=== PATIENT | female | born 1965 | race Hispanic/Latino ===

== ENCOUNTER → 2025-09-23 | Outpatient (CLI) | payer OTHER ==
--- NOTE | 2025-09-24 03:06 | HMCIMG ---
STUDY: X-RAY OF THE LEFT FOOT, 2 VIEWS HISTORY: Pain and arthritis. TECHNIQUE: AP and lateral views of the left foot are submitted for interpretation. COMPARISON: None provided. FINDINGS: Bones and joints: Mild generalized osteopenia. Mild degenerative changes are noted in the interphalangeal joints. Plantar and dorsal calcaneal spurs are present. An accessory navicular bone is identified. No acute fracture, dislocation, or aggressive osseous lesion is seen. Soft tissues: Periarticular soft tissues appear unremarkable. No soft tissue gas or radiopaque foreign body is identified. IMPRESSION: * Mild osteopenia with mild degenerative changes of the interphalangeal joints. * Plantar and dorsal calcaneal spurs. * Accessory navicular bone. * No acute osseous abnormality. /[place]
--- NOTE | 2025-09-24 03:06 | HMCIMG ---
STUDY: X-RAY OF THE LEFT KNEE, 2 VIEWS HISTORY: Pain and arthritis. TECHNIQUE: AP and lateral views of the left knee are submitted for interpretation. COMPARISON: None provided. FINDINGS: Bones and joints: Mild reduction in the medial tibiofemoral and patellofemoral joint spaces, compatible with early degenerative change. No acute fracture, dislocation, or aggressive osseous lesion is identified. Soft tissues: Periarticular soft tissues appear unremarkable. No definite joint effusion, soft tissue gas, or radiopaque foreign body is seen. IMPRESSION: * Mild degenerative changes of the left knee with joint space narrowing in the medial tibiofemoral and patellofemoral compartments. * No acute osseous abnormality. /[place]
--- NOTE | 2025-09-24 06:43 | HMCIMG ---
EXAM: CR left Hip, 3 View. CLINICAL HISTORY: Pain. COMPARISON: None provided. FINDINGS: BONES: Osteopenia. Degenerative changes are present in the visualized bones. No acute fracture or aggressive appearing osseous lesion. JOINTS: No dislocation. The joint spaces are normal. Mild osteoarthritis is present in the bilateral hip joints. SOFT TISSUES: The soft tissues are unremarkable. Pelvic phleboliths are present. IMPRESSION: 1. No acute osseous injury. 2. Osteopenia. 3. 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 /[place]
== END | disposition home or self-care (01) ==
LOC: RAH 15:21
PROVIDERS: ATTEND Internal Medicine
DX: M16.0 Bilateral primary osteoarthritis of hip (principal); M85.88 Other specified disorders of bone density and structure, other site; I87.8 Other specified disorders of veins; M25.552 Pain in left hip; M17.12 Unilateral primary osteoarthritis, left knee; M19.072 Primary osteoarthritis, left ankle and foot; M77.32 Calcaneal spur, left foot; M85.872 Other specified disorders of bone density and structure, left ankle and foot
CPT/HCPCS: 73502; 73560; 73620